=== PATIENT | male | born 1960 | race Caucasian/White ===

== ENCOUNTER 2017-12-21 20:04 | Emergency (ER) | payer OTHER ==
[~2017-12-21] VITALS: Ht 198.1 cm; Wt 117.9 kg
[~2017-12-21 20:04] MED LIST: AMIT25; AMIT50 PO; Bactrim Ds Tab1 EACH PO; Cleocin HCl300 MG PO; GABA400 PO; LOSA25; METF500 PO; METF500C PO; Norco 5-325 Ta1 EACH PO; PRIM50 PO
== END 2017-12-21 21:07 | disposition home or self-care (01) ==
LOC: ER 20:04
DX: J30.9 Allergic rhinitis, unspecified (principal); Z88.1 Allergy status to other antibiotic agents; Z79.899 Other long term (current) drug therapy; Z79.84 Long term (current) use of oral hypoglycemic drugs; E11.9 Type 2 diabetes mellitus without complications; F17.200 Nicotine dependence, unspecified, uncomplicated
CPT/HCPCS: 99283

== ENCOUNTER 2018-07-06 16:05 | Emergency (ER) | payer OTHER ==
[~2018-07-06] VITALS: Ht 198.1 cm; Wt 115.2 kg
[2018-07-06] MEDS ORDERED: MELO7.5 (16:24)
[2018-07-06] MEDS ORDERED: VARE1 PO (16:24)
[2018-07-06] MEDS ORDERED: Norco 5-325 Ta1 EACH PO (17:04)
== END 2018-07-06 17:20 | disposition home or self-care (01) ==
LOC: ER 16:05
DX: M79.631 Pain in right forearm (principal); M79.641 Pain in right hand; E11.9 Type 2 diabetes mellitus without complications; F17.210 Nicotine dependence, cigarettes, uncomplicated; Z88.1 Allergy status to other antibiotic agents; Z79.899 Other long term (current) drug therapy; Z79.84 Long term (current) use of oral hypoglycemic drugs; W01.0XXA Fall on same level from slipping, tripping and stumbling without subsequent striking against object, initial encounter
CPT/HCPCS: 29125; 73090; 73130; 96372; 99283-25; J1885

== ENCOUNTER 2018-09-30 18:59 | Emergency (ER) | payer OTHER ==
[~2018-09-30] VITALS: Ht 198.1 cm; Wt 97.5 kg
[~2018-09-30 18:59] MED LIST changes: +MELO7.5; +VARE1 PO
[2018-09-30] MEDS ORDERED: DULO30 PO (19:33)
[2018-09-30] MEDS ORDERED: Permethrin60 GM TOP (20:36)
== END 2018-09-30 20:48 | disposition home or self-care (01) ==
LOC: ER 18:59
DX: S30.860A Insect bite (nonvenomous) of lower back and pelvis, initial encounter (principal); S60.862A Insect bite (nonvenomous) of left wrist, initial encounter; S60.861A Insect bite (nonvenomous) of right wrist, initial encounter; S30.862A Insect bite (nonvenomous) of penis, initial encounter; W57.XXXA Bitten or stung by nonvenomous insect and other nonvenomous arthropods, initial encounter; Z88.1 Allergy status to other antibiotic agents; Z79.899 Other long term (current) drug therapy; Z79.84 Long term (current) use of oral hypoglycemic drugs; E11.9 Type 2 diabetes mellitus without complications; F17.200 Nicotine dependence, unspecified, uncomplicated
CPT/HCPCS: 99282

== ENCOUNTER 2018-10-03 12:41 | Emergency (ER) | payer OTHER ==
[~2018-10-03] VITALS: Ht 198.1 cm; Wt 108.9 kg
[~2018-10-03 12:41] MED LIST changes: +DULO30 PO; +Permethrin60 GM TOP
[2018-10-03] MEDS ORDERED: METPRE4DP PO (13:56)
[2018-10-03] MEDS ORDERED: Permethrin60 GM TOP (13:56)
== END 2018-10-03 14:00 | disposition home or self-care (01) ==
LOC: ER 12:41
DX: B86 Scabies (principal); Z88.1 Allergy status to other antibiotic agents; Z79.899 Other long term (current) drug therapy; Z79.84 Long term (current) use of oral hypoglycemic drugs; E11.9 Type 2 diabetes mellitus without complications; F17.200 Nicotine dependence, unspecified, uncomplicated
CPT/HCPCS: 99282

== ENCOUNTER 2019-03-13 19:14 | Emergency (ER) | payer OTHER ==
[~2019-03-13] VITALS: Ht 198.1 cm; Wt 108.9 kg
[~2019-03-13 19:14] MED LIST changes: +METPRE4DP PO
[2019-03-13] MEDS ORDERED: TYLENOL PM (19:53)
== END 2019-03-13 20:58 | disposition home or self-care (01) ==
LOC: ER 19:14
DX: R04.0 Epistaxis (principal); Z79.899 Other long term (current) drug therapy; Z88.1 Allergy status to other antibiotic agents; Z79.84 Long term (current) use of oral hypoglycemic drugs; E11.9 Type 2 diabetes mellitus without complications; F17.200 Nicotine dependence, unspecified, uncomplicated
CPT/HCPCS: 99283

== ENCOUNTER 2019-06-17 21:25 | Emergency (ER) | payer OTHER ==
[~2019-06-17] VITALS: Ht 195.6 cm; Wt 108.4 kg
[~2019-06-17 21:25] MED LIST changes: -MELO7.5; +MELO7.5 PO; +TYLENOL PM
[2019-06-17 23:47] LABS: BASOPHILS ABSOLUTE AUTO 0.04 K/mm3 (0.00-0.23); BASOPHILS PERCENT AUTO 1 % (0-2); EOSINOPHILS ABSOLUTE AUTO 0.22 K/mm3 (0.00-0.68); EOSINOPHILS PERCENT AUTO 3 % (0-6); Hematocrit 36.6 % (37.0-53.0); Hemoglobin 12.1 g/dL (13.5-17.5); IMMATURE GRAN ABSOLUTE AUTO 0.01 K/mm3 (0.00-0.10); IMMATURE GRAN PERCENT AUTO 0 % (0-1); LYMPHOCYTES ABSOLUTE AUTO 3.12 K/mm3 (0.84-5.20); LYMPHOCYTES PERCENT AUTO 39 % (21-46); MONOCYTES ABSOLUTE AUTO 0.88 K/mm3 (0.16-1.47); MONOCYTES PERCENT AUTO 11 % (4-13); Mean Corpuscular HGB 30.9 pg (26.0-34.0); Mean Corpuscular HGB Conc 33.1 g/dL (31.5-36.5); Mean Corpuscular Volume 93 fL (80-100); Mean Platelet Volume 9.9 fL (9.1-12.4); NEUTROPHILS ABSOLUTE AUTO 3.68 K/mm3 (1.96-9.15); NEUTROPHILS PERCENT AUTO 46 % (41-73); Platelet Count 194 K/mm3 (150-400); RDW Coefficient Variation 12.7 % (11.7-14.2); RDW Standard Deviation 43.9 fL (35.1-46.3); Red Blood Cell Count 3.92 M/mm3 (4.30-5.90); White Blood Cell Count 7.95 K/mm3 (4.00-11.30)
[2019-06-18 00:08] LABS: Albumin, Blood 3.6 g/dL (3.4-5.0); Albumin/Globulin Ratio 0.8 (0.8-1.8); Bilirubin, Total 0.4 mg/dL (0.1-1.0); Bun/Creatinine Ratio 21.6 (12.0-20.0); Calcium, Blood 8.8 mg/dL (8.5-10.1); Creatinine, Blood 1.39 mg/dL (0.60-1.20); Globulin, Blood 4.6 g/dL (2.2-4.0); Potassium, Blood 3.5 mmol/L (3.5-5.5); Total Protein, Blood 8.2 g/dL (6.4-8.2)
[2019-06-18] MEDS ORDERED: CIPRO500 MG PO (01:22)
== END 2019-06-18 01:35 | disposition home or self-care (01) ==
LOC: ER 21:25
PROVIDERS: Emergency Medicine
DX: S91.102A Unspecified open wound of left great toe without damage to nail, initial encounter (principal); L08.9 Local infection of the skin and subcutaneous tissue, unspecified; E11.9 Type 2 diabetes mellitus without complications; F17.200 Nicotine dependence, unspecified, uncomplicated; Z88.1 Allergy status to other antibiotic agents; Z79.899 Other long term (current) drug therapy; F17.210 Nicotine dependence, cigarettes, uncomplicated
CPT/HCPCS: 36415; 73660; 80053; 85025; 96365; 99283-25; J2543

== ENCOUNTER 2019-06-23 13:03 | Day surgery (SDC) | payer OTHER ==
[~2019-06-23] VITALS: Ht 195.6 cm; Wt 109.8 kg
[~2019-06-23 13:03] MED LIST changes: +CIPRO500 MG PO
[2019-06-23] MEDS ORDERED: AMOCLA500 PO (13:47)
--- NOTE | 2019-06-23 13:52 | NUR ---
06/23/19 1352 Marizol Burnham DID NOT GIORGI WIPE PT IN PRE OP. D/T PT HAVING OPEN WOUND ON LEFT FOOT, COVERED BY BANDAID. NOTIFIED.
--- NOTE | 2019-06-23 14:52 | NUR ---
06/23/19 1452 Hodan Glass OPEN WOUND ON TIP OF LEFT GREAT TOE. PER DR. WARNER OK TO USE DURAPREP ON WOUND.
--- NOTE | 2019-06-23 15:22 | NUR ---
06/23/19 1522 Dee Lord PT. VERBALIZES LEFT TOES FEEL NUMB. PT. DENIES PAIN OR NAUSEA. NO DRAINAGE NOTED ON LEFT TOE DRSG.
--- NOTE | 2019-06-23 16:03 | NUR ---
06/23/19 1603 Dee Lord IBUPROFEN GIVEN PER ORDER BEFORE DISCHARGE.
== END 2019-06-23 16:34 | disposition home or self-care (01) ==
LOC: ORSCSDS 13:03
PROVIDERS: Podiatrist
PROC: 0Y6Q0Z3 Detachment at Left 1st Toe, Low, Open Approach (ICD-10-PCS; principal; 2019-06-23 14:30)
DX: M86.172 Other acute osteomyelitis, left ankle and foot (principal); L97.524 Non-pressure chronic ulcer of other part of left foot with necrosis of bone; E11.40 Type 2 diabetes mellitus with diabetic neuropathy, unspecified; F17.210 Nicotine dependence, cigarettes, uncomplicated; Z79.899 Other long term (current) drug therapy
CPT/HCPCS: 82947; 87070; 87075; 87077; 87185; 87186; 87205; 88305; J0690; J2250; J7120

== ENCOUNTER 2019-07-24 12:29 | Emergency (ER) | payer OTHER ==
[~2019-07-24 12:29] MED LIST changes: +AMOCLA500 PO
== END 2019-07-24 13:18 | disposition left against medical advice (07) ==
LOC: ER 12:29
DX: Z53.21 Procedure and treatment not carried out due to patient leaving prior to being seen by health care provider (principal)

== ENCOUNTER 2019-09-06 09:17 | Day surgery (SDC) | payer OTHER ==
[~2019-09-06] VITALS: Ht 195.6 cm; Wt 117.0 kg
[~2019-09-06 09:17] MED LIST changes: +Voltaren100 GM TOP
--- NOTE | 2019-09-06 12:29 | NUR ---
PATIENT DISCHARGED AT THIS TIME WITH ALL BELONINGS AND DISCHARGE INSTRUCTIONS AFTER CULEX ADDED TO DRESSING AFTER REPORTING DRAINAGE TO DR WARNER. PATIENT AND SENT HOME WITH EXTRA ANTHONY WRAPS CURLEX AND GAUZE. ALL QUESTINGS ANWERED REGARDING DISCHARGE INSTRUCTIONS.
== END 2019-09-06 22:46 | disposition home or self-care (01) ==
LOC: ORSCMMR 09:17
PROVIDERS: Podiatrist
PROC: 0Y6Q0Z0 Detachment at Left 1st Toe, Complete, Open Approach (ICD-10-PCS; principal; 2019-09-06 10:00)
DX: M86.272 Subacute osteomyelitis, left ankle and foot (principal); L97.524 Non-pressure chronic ulcer of other part of left foot with necrosis of bone; E11.40 Type 2 diabetes mellitus with diabetic neuropathy, unspecified; Z79.84 Long term (current) use of oral hypoglycemic drugs; Z79.899 Other long term (current) drug therapy
CPT/HCPCS: 82947; 87015; 87071; 87075; 87077; 87116; 87186; 87205; 87206; 88305; 88311; A9270-GY; J0690; J2250; J2704; J3010; J7120

== ENCOUNTER → 2019-09-25 | Outpatient (CLI) | payer OTHER ==
[2019-10-03 13:44] LABS: Stool Occult Bld Immuno 1 Negative (NEGATIVE)
== END | disposition home or self-care (01) ==
LOC: LAB SHORT 10:30 → LAB 10:30
PROVIDERS: Family Medicine
DX: Z12.11 Encounter for screening for malignant neoplasm of colon (principal)
CPT/HCPCS: 82274

== ENCOUNTER 2021-02-13 07:23 | Day surgery (SDC) | payer OTHER ==
[~2021-02-13] VITALS: Ht 195.6 cm; Wt 122.0 kg
[~2021-02-13 07:23] MED LIST changes: +Cymbalta20 MG PO; +MULTIPLE VITAM1 EACH PO; +Mobic15 MG PO
[2021-02-13] MEDS ORDERED: CELE200 (08:02)
[2021-02-13] MEDS ORDERED: Aspirin EC81 MG (08:04)
[2021-02-13] MEDS ORDERED: ASPI325 (08:04)
== END 2021-02-13 09:45 | disposition home or self-care (01) ==
LOC: ORSCSDS 07:23
PROVIDERS: Surgery
PROC: 0DJD8ZZ Inspection of Lower Intestinal Tract, Via Natural or Artificial Opening Endoscopic (ICD-10-PCS; principal; 2021-02-13 08:45)
DX: Z12.11 Encounter for screening for malignant neoplasm of colon (principal); E11.9 Type 2 diabetes mellitus without complications; F17.210 Nicotine dependence, cigarettes, uncomplicated; Z79.84 Long term (current) use of oral hypoglycemic drugs; Z79.899 Other long term (current) drug therapy
CPT/HCPCS: 82947; J0330; J0461; J2405; J2704; J7120

== ENCOUNTER 2021-03-03 13:29 | Emergency (ER) | payer OTHER ==
[~2021-03-03] VITALS: Ht 195.6 cm; Wt 125.6 kg
[~2021-03-03 13:29] MED LIST changes: +ASPI325; +Aspirin EC81 MG; +CELE200
[2021-03-03] MEDS ORDERED: ELIQUIS5 MG PO (14:52)
[2021-03-03 15:19] LABS: BASOPHILS PERCENT AUTO 0 % (0-2); EOSINOPHILS ABSOLUTE AUTO 0.21 K/mm3 (0.00-0.68); EOSINOPHILS PERCENT AUTO 3 % (0-6); Hematocrit 41.2 % (37.0-53.0); IMMATURE GRAN ABSOLUTE AUTO 0.03 K/mm3 (0.00-0.10); IMMATURE GRAN PERCENT AUTO 0 % (0-1); LYMPHOCYTES ABSOLUTE AUTO 2.42 K/mm3 (0.84-5.20); LYMPHOCYTES PERCENT AUTO 34 % (21-46); MONOCYTES ABSOLUTE AUTO 0.92 K/mm3 (0.16-1.47); MONOCYTES PERCENT AUTO 13 % (4-13); Mean Corpuscular HGB 31.1 pg (26.0-34.0); Mean Corpuscular Volume 92 fL (80-100); Mean Platelet Volume 9.9 fL (9.1-12.4); NEUTROPHILS ABSOLUTE AUTO 3.56 K/mm3 (1.96-9.15); NEUTROPHILS PERCENT AUTO 50 % (41-73); Platelet Count 163 K/mm3 (150-400); RDW Coefficient Variation 12.5 % (11.7-14.2); White Blood Cell Count 7.14 K/mm3 (4.00-11.30)
[2021-03-03 15:32] LABS: International Normalized Ratio 0.94; Prothrombin Time Results 10.2 Sec (9.7-11.5)
[2021-03-03 15:36] LABS: Alanine Aminotransfer (ALT/SGP 43 U/L (12-78); Albumin, Blood 3.6 g/dL (3.4-5.0); Albumin/Globulin Ratio 0.9 (0.8-1.8); Alk Phos 90 U/L (50-136); Anion Gap 4 mmol/L (6-16); Aspartate Aminotrans (AST/SGOT 26 U/L (12-37); Bilirubin, Total 0.3 mg/dL (0.1-1.0); Blood Urea Nitrogen 24 mg/dL (8-24); Bun/Creatinine Ratio 22.4 (12.0-20.0); CO2, Blood 27 mmol/L (21-32); Calcium, Blood 8.7 mg/dL (8.5-10.1); Chloride, Blood 106 mmol/L (98-108); Creatinine, Blood 1.07 mg/dL (0.60-1.20); Globulin, Blood 4.2 g/dL (2.2-4.0); Glomerular Filtration Rate >60 (60-); Glucose, Blood 141 mg/dL (70-99); Potassium, Blood 3.9 mmol/L (3.5-5.5); Sodium, Blood 137 mmol/L (136-145); Total Protein, Blood 7.8 g/dL (6.4-8.2)
== END 2021-03-03 16:14 | disposition home or self-care (01) ==
LOC: ER 13:29
PROVIDERS: Physician Assistant
DX: I82.412 Acute embolism and thrombosis of left femoral vein (principal); E11.9 Type 2 diabetes mellitus without complications; Z88.0 Allergy status to penicillin; Z88.1 Allergy status to other antibiotic agents; Z79.84 Long term (current) use of oral hypoglycemic drugs
CPT/HCPCS: 80053; 85025; 85610; 85730; 93971; 99284-25; A9270

== ENCOUNTER 2021-09-26 06:18 | Emergency (ER) | payer OTHER ==
[~2021-09-26] VITALS: Ht 193 cm; Wt 104.3 kg
[~2021-09-26 06:18] MED LIST changes: +ELIQUIS5 MG PO
[2021-09-26] MEDS ORDERED: POLYTRIM EYE DR10 M1 BOTHEYES (07:20)
== END 2021-09-26 07:41 | disposition home or self-care (01) ==
LOC: ER 06:18
DX: S05.01XA Injury of conjunctiva and corneal abrasion without foreign body, right eye, initial encounter (principal); E11.9 Type 2 diabetes mellitus without complications; Z88.0 Allergy status to penicillin; Z88.1 Allergy status to other antibiotic agents; X58.XXXA Exposure to other specified factors, initial encounter
CPT/HCPCS: 99283; A9270

== ENCOUNTER 2022-05-16 00:05 | Emergency (ER) | payer OTHER ==
[~2022-05-16] VITALS: Ht 195.6 cm; Wt 122.5 kg
[~2022-05-16 00:05] MED LIST changes: +POLYTRIM EYE DR10 M1 BOTHEYES
[2022-05-16] MEDS ORDERED: CEPH500 PO (03:59)
== END 2022-05-16 04:26 | disposition home or self-care (01) ==
LOC: ER 00:05
DX: L03.211 Cellulitis of face (principal); S00.81XA Abrasion of other part of head, initial encounter; E11.9 Type 2 diabetes mellitus without complications; F17.210 Nicotine dependence, cigarettes, uncomplicated; Z86.718 Personal history of other venous thrombosis and embolism; Z79.899 Other long term (current) drug therapy; Z79.82 Long term (current) use of aspirin; Z79.84 Long term (current) use of oral hypoglycemic drugs; X58.XXXA Exposure to other specified factors, initial encounter
CPT/HCPCS: A9270

== ENCOUNTER 2024-06-06 14:21 | Emergency (ER) | payer OTHER ==
[~2024-06-06] VITALS: Ht 198.1 cm; Wt 109.3 kg
[~2024-06-06 14:21] MED LIST changes: +CEPH500 PO
[2024-06-06 14:51] LABS: BASOPHILS ABSOLUTE AUTO 0.04 K/mm3 (0.00-0.23); BASOPHILS PERCENT AUTO 1 % (0-2); EOSINOPHILS ABSOLUTE AUTO 0.13 K/mm3 (0.00-0.68); EOSINOPHILS PERCENT AUTO 3 % (0-6); Hematocrit 34.7 % (37.0-53.0); Hemoglobin 11.4 g/dL (13.5-17.5); IMMATURE GRAN ABSOLUTE AUTO 0.01 K/mm3 (0.00-0.10); IMMATURE GRAN PERCENT AUTO 0 % (0-1); LYMPHOCYTES ABSOLUTE AUTO 1.89 K/mm3 (0.84-5.20); LYMPHOCYTES PERCENT AUTO 41 % (21-46); MONOCYTES ABSOLUTE AUTO 0.52 K/mm3 (0.16-1.47); MONOCYTES PERCENT AUTO 11 % (4-13); Mean Corpuscular HGB 28.5 pg (26.0-34.0); Mean Corpuscular HGB Conc 32.9 g/dL (31.5-36.5); Mean Corpuscular Volume 87 fL (80-100); Mean Platelet Volume 9.9 fL (9.1-12.4); NEUTROPHILS ABSOLUTE AUTO 2.04 K/mm3 (1.96-9.15); NEUTROPHILS PERCENT AUTO 44 % (41-73); Platelet Count 158 K/mm3 (150-400); RDW Standard Deviation 41.2 fL (35.1-46.3); White Blood Cell Count 4.63 K/mm3 (4.00-11.30)
[2024-06-06 15:33] LABS: Albumin, Blood 3.5 g/dL (3.4-5.0); Albumin/Globulin Ratio 0.9 (0.8-1.8); Bilirubin, Total 0.7 mg/dL (0.1-1.0); Bun/Creatinine Ratio 23.4 (12.0-20.0); Creatinine, Blood 1.11 mg/dL (0.60-1.20); Potassium, Blood 4.2 mmol/L (3.5-5.5); Total Protein, Blood 7.5 g/dL (6.4-8.2)
[2024-06-06 16:00] VITALS: BP 142/86
[2024-06-06] MEDS ORDERED: METPRE4DP PO (16:36)
== END 2024-06-06 16:46 | disposition home or self-care (01) ==
LOC: ER 14:21
PROVIDERS: Physician Assistant
DX: G56.92 Unspecified mononeuropathy of left upper limb (principal); E11.9 Type 2 diabetes mellitus without complications; F17.210 Nicotine dependence, cigarettes, uncomplicated; Z79.82 Long term (current) use of aspirin; Z79.84 Long term (current) use of oral hypoglycemic drugs; Z79.899 Other long term (current) drug therapy; Z88.0 Allergy status to penicillin; Z88.1 Allergy status to other antibiotic agents; Z91.040 Latex allergy status; Z91.048 Other nonmedicinal substance allergy status
CPT/HCPCS: 70450; 71045; 72125; 80053; 84484; 85025; 93005; 93010; 99284-25